=== PATIENT | female | born 1975 | race Caucasian/White ===

== ENCOUNTER → 2020-08-31 | Outpatient (CLI) | payer MEDICARE, OTHER | LOC: KOH-I 09:39 | DX: M21.069 Valgus deformity, not elsewhere classified, unspecified knee (principal); M17.0 Bilateral primary osteoarthritis of knee | CPT/HCPCS: 73562 ==

== ENCOUNTER 2021-07-07 20:57 | Emergency (ER) | payer MEDICARE, OTHER ==
[2021-07-08] MEDS ORDERED: TYLENOL EXTRA500 MG PO (00:24)
[2021-07-08] MEDS ORDERED: VOLTAREN ARTHRI20 GM TP (00:24)
== END 2021-07-08 00:35 | disposition home or self-care (01) ==
LOC: ER1 20:57
DX: M17.11 Unilateral primary osteoarthritis, right knee (principal); Z79.899 Other long term (current) drug therapy
CPT/HCPCS: 73564; 73700; 99284

== ENCOUNTER 2021-10-11 11:42 | Observation (INO) | payer MEDICARE, OTHER ==
[~2021-10-11] VITALS: Ht 160 cm; Wt 72.6 kg
[~2021-10-11 11:42] MED LIST changes: -BACTRIM DS TAB1 EACH PO
[2021-10-11] MEDS ORDERED: TYLENOL EXTRA500 MG PO (11:43)
[2021-10-11 14:07] LABS: HEMOGLOBIN 15.1 gm/dl (12.3-15.3); RED BLOOD COUNT 4.52 M/UL (4.00-5.10); WHITE BLOOD COUNT 7.3 K/UL (4.5-11.0)
[2021-10-11 14:31] LABS: BUN/CREATININE RATIO 26 (0-10)
[2021-10-11] MEDS ORDERED: BACTRIM DS TAB1 EACH PO (14:50)
[2021-10-12 06:45] LABS: HEMOGLOBIN 12.7 gm/dl (12.3-15.3); RED BLOOD COUNT 3.87 M/UL (4.00-5.10); WHITE BLOOD COUNT 4.6 K/UL (4.5-11.0)
[2021-10-12 07:20] LABS: BUN/CREATININE RATIO 38 (0-10)
== END 2021-10-12 13:30 | disposition home or self-care (01) ==
LOC: ER1 11:42 → M/S 14:37 → CDU 14:37 → M/S 18:15
PROVIDERS: Emergency Medicine; Physician Assistant Medical; ADMIT Internal Medicine
DX: L03.012 Cellulitis of left finger (principal); M19.90 Unspecified osteoarthritis, unspecified site; F79 Unspecified intellectual disabilities; Z79.899 Other long term (current) drug therapy
CPT/HCPCS: 73130; 80048; 80053; 83735; 85025; 85027; 85652; 86140; 87040; 96365; 96366; 96375; 99284; G0378; J0692; J3370; J7030; J7070

== ENCOUNTER → 2021-10-11 | Outpatient (CLI) | payer MEDICARE, OTHER ==
[~2021-10-11] VITALS: Ht 160 cm; Wt 72.6 kg
[~2021-10-11] MED LIST: BACTRIM DS TAB1 EACH PO; ESCITALOPRAM OX10 MG PO; MELOXICAM7.5 MG PO; TYLENOL EXTRA500 MG PO; VOLTAREN ARTHRI20 GM TP
[2021-10-11 11:03] LABS: HEMOGLOBIN 14.9 gm/dl (12.3-15.3); RED BLOOD COUNT 4.48 M/UL (4.00-5.10)
[2021-10-11 11:23] LABS: BUN/CREATININE RATIO 30 (0-10)
== END ==
LOC: EDSTATUS 10:00 → OPSV2 10:00
PROVIDERS: Orthopaedic Surgery
DX: Z01.818 Encounter for other preprocedural examination (principal); M17.11 Unilateral primary osteoarthritis, right knee; M21.00 Valgus deformity, not elsewhere classified, unspecified site
CPT/HCPCS: 80048; 85025; 93005

== ENCOUNTER → 2021-11-14 | Outpatient (CLI) | payer MEDICARE, OTHER ==
[~2021-11-14] MED LIST changes: +BACTRIM DS TAB1 EACH PO; +CYCLOBENZAPRINE10 MG PO; +ELIQUIS2.5 MG PO; +HYDROCODON-ACE1 EAC6 PO; +NON-ASPIRIN EX500 M1 PO; +ZOFRAN 4 MG TAB4 MG PO
[2021-11-14 12:48] LABS: HEMOGLOBIN 14.2 gm/dl (12.3-15.3); RED BLOOD COUNT 4.32 M/UL (4.00-5.10)
[2021-11-14 13:08] LABS: BUN/CREATININE RATIO 31 (0-10)
== END ==
LOC: LAB 12:14
PROVIDERS: Nurse Practitioner Family
DX: Z11.4 Encounter for screening for human immunodeficiency virus [HIV] (principal); Z13.220 Encounter for screening for lipoid disorders; M17.0 Bilateral primary osteoarthritis of knee; F34.1 Dysthymic disorder; F79 Unspecified intellectual disabilities
CPT/HCPCS: 36415; 80053; 85025; 86850; 86900; 86901

== ENCOUNTER 2021-11-15 06:57 | Day surgery (SDC) | payer MEDICARE, OTHER ==
[~2021-11-15] VITALS: Ht 160 cm; Wt 72.6 kg
[~2021-11-15 06:57] MED LIST changes: -CYCLOBENZAPRINE10 MG PO; -ELIQUIS2.5 MG PO; -HYDROCODON-ACE1 EAC6 PO; -NON-ASPIRIN EX500 M1 PO; -ZOFRAN 4 MG TAB4 MG PO
[2021-11-15] MEDS ORDERED: NON-ASPIRIN EX500 M1 PO (07:31)
[2021-11-15] MEDS ORDERED: VOLTAREN ARTHRI20 GM TP (07:33)
[2021-11-15] MEDS ORDERED: ZOFRAN 4 MG TAB4 MG PO (11:17)
[2021-11-15] MEDS ORDERED: CYCLOBENZAPRINE10 MG PO (11:17)
[2021-11-15] MEDS ORDERED: ELIQUIS2.5 MG PO (11:17)
[2021-11-15] MEDS ORDERED: HYDROCODON-ACE1 EAC6 PO (11:17)
[2021-11-16 04:59] LABS: HEMOGLOBIN 11.3 gm/dl (12.3-15.3); RED BLOOD COUNT 3.4 M/UL (4.00-5.10); WHITE BLOOD COUNT 13.1 K/UL (4.5-11.0)
[2021-11-16 06:26] LABS: BUN/CREATININE RATIO 28 (0-10)
[2021-11-17 02:57] LABS: WHITE BLOOD COUNT 7.2 K/UL (4.5-11.0)
[2021-11-17 02:58] LABS: HEMOGLOBIN 8.9 gm/dl (12.3-15.3); RED BLOOD COUNT 2.68 M/UL (4.00-5.10)
[2021-11-17 03:08] LABS: BUN/CREATININE RATIO 23 (0-10)
== END 2021-11-17 12:51 | disposition home health service (06) ==
LOC: M/S 06:57 → OR 06:57 → M/S 15:02 → OR 11-17 12:51
PROVIDERS: Orthopaedic Surgery
DX: M17.0 Bilateral primary osteoarthritis of knee (principal); F41.1 Generalized anxiety disorder; M21.062 Valgus deformity, not elsewhere classified, left knee; M21.061 Valgus deformity, not elsewhere classified, right knee
CPT/HCPCS: 36415; 73560; 80048; 84703; 85027; 97110-GP-CQ; 97116-GP-CQ; 97162; 97166; 97530; 97530-GP-CQ; 97535; C1713; C1776; J0171; J0690; J1100; J1170; J1644; J2001; J2250; J2270; J2274; J2405; J2704; J2795; J3010; J3370